=== PATIENT | female | born 1965 | race Caucasian/White ===

== ENCOUNTER 2021-11-24 10:17 | Outpatient (CLI) | payer BC, SELFPAY | END 2021-11-24 10:18 | disposition home or self-care (01) | LOC: OP CLINIC 10:18 | PROVIDERS: PCP Physician Assistant Medical; Visit Provider Surgery | DX: Z12.11 Encounter for screening for malignant neoplasm of colon (principal); K63.5 Polyp of colon; K64.4 Residual hemorrhoidal skin tags; K57.30 Diverticulosis of large intestine without perforation or abscess without bleeding | CPT/HCPCS: 45385; 88305; 99153; J2250; J3010 ==

== ENCOUNTER 2023-06-09 16:39 | Outpatient (CLI) | payer BC, SELFPAY ==
[2023-06-10 00:05] LABS: Chlamydia DNA Amplified* Not Detected (No Detected); GC DNA Amplified* Not Detected (No Detected)
== END 2023-06-09 16:40 | disposition home or self-care (01) ==
LOC: LKVREF 16:56
PROVIDERS: PCP Physician Assistant Medical; Visit Provider Physician Assistant Medical
DX: Z11.3 Encounter for screening for infections with a predominantly sexual mode of transmission (principal)
CPT/HCPCS: 87491; 87591

== ENCOUNTER 2023-07-01 08:04 | Outpatient (CLI) | payer BC, SELFPAY | END 2023-07-01 08:05 | disposition home or self-care (01) | LOC: NFLDREF 07-13 18:46 | PROVIDERS: PCP Physician Assistant Medical; Referring Provider Physician Assistant Medical; Visit Provider Physician Assistant Medical | DX: Z13.228 Encounter for screening for other metabolic disorders (principal); Z13.220 Encounter for screening for lipoid disorders | CPT/HCPCS: 80053; 80061 ==